=== PATIENT | male | born 1940 | race Caucasian/White ===

== ENCOUNTER 2018-08-25 10:18 | Observation (INO) | payer MEDICARE ==
[2018-08-25 11:06] LABS: Hematocrit 37.5 % (42.0-52.0); Hemoglobin 13.8 gm/dL (13.5-18.0); Mean Corpuscular Hemoglobin 34.6 pg (27-31); Mean Corpuscular Hgb Conc 36.8 g/dl (32-36); Mean Platelet Volume 9.3 fl (8-11.3); Neutrophil # 4.1 K/mm3 (1.3-6.0); Neutrophil % 62.8 % (42-75.0); Platelet Count 173 K/mm3 (150-450); Red Blood Count 3.99 M/mm3 (4.7-6.0); Red Cell Distribution Width 11.9 % (11.5-14.0); White Blood Count 6.5 K/mm3 (4.0-10.5)
[2018-08-25 11:17] LABS: Albumin * 3.5 gm/dl (3.4-5.0); Anion Gap 5.5 mmol/L (6.8-13.8); BUN/Creatinine Ratio 13.6 (9.0-21.6); Bilirubin, Total 1.1 mg/dL (0.0-1.1); Ca. Corrected For Albumin 8.9 mg/dL (8.4-10.2); Calcium * 8.8 mg/dL (7.9-10.9); Carbon Dioxide 30.6 mmol/L (24-32.6); Potassium 4.1 mmol/L (3.4-4.6); Total Protein 7.1 gm/dL (6.2-8.2)
[2018-08-25 11:21] LABS: Urine Bilirubin Negative (NEGATIVE); Urine Blood Negative /ul (NEGATIVE); Urine Ketone Negative (NEGATIVE); Urine Nitrite Negative (NEGATIVE); Urine Protein 100 mg/dL (NEGATIVE); Urine Urobilinogen Normal (NORMAL); Urine pH 6.5 pH (5.0-7.0)
[2018-08-25 11:39] LABS: Urine Appearance Clear (CLEAR); Urine Bacteria TRACE; Urine Color Yellow; Urine RBC None Seen /hpf (0-5); Urine WBC 0-5 /hpf (0-5)
--- NOTE | 2018-08-25 12:28 | ERNOTE ---
Neuro HPI ER Record Date of Service: 08/25/18 Time Seen by Provider: 08/25/18 10:56 Source: patient Exam Limitations: no limitations Immunizations: IMMUNIZATION HX Immunizations Up to Date Yes History of Influenza Vaccine Yes Hx Pneumococcal Vaccination Yes Allergies/Adverse Reactions: Allergies Allergy/AdvReac Type Severity Reaction Status Date / Time No Known Allergies Allergy Verified 08/25/18 10:23 Home Medications: HOME MEDICATIONS Aspirin 325 mg PO DAILY 02/06/13 [Last Taken Unknown] Lisinopril/Hydrochlorothiazide [Lisinopril-Hctz 20-25 mg Tab] 2 tab PO DAILY 03/19/13 [Last Taken Unknown] Metoprolol Succinate [Toprol Xl] 100 mg PO BID 03/19/13 [Last Taken Unknown] - History of Present Illness Narrative: patient c/o weakness and diorientation, recently had uri with sinus congestion, these symptoms have resolved Onset: cannot confirm onset Severity: moderate - Character of Deficits Additional Deficits: Present: weakness, off balance Baseline Cognition: Present: alert, oriented x 4 Baseline Gait: Present: walks w/o assistance Associated Symptoms: Reports: disoriented, trouble concentrating Review of Systems - Review of Systems Constitutional: Present: See HPI, weakness, fatigue, malaise EYE: Present: no symptoms reported ENT: Present: no symptoms reported Respiratory: Present: no symptoms reported Cardiology: Present: no symptoms reported Gastrointestinal/Abdominal: Present: no symptoms reported Genitourinary: Present: no symptoms reported Musculoskeletal: Present: no symptoms reported Skin: Present: no symptoms reported Neurological: Present: dizziness/light-headedness, weakness Endocrine: Present: no symptoms reported Hematologic/Lymphatic: Present: no symptoms reported Psych: Present: no symptoms reported All Other Systems: All systems neg except as marked Medical History (Last Updated 08/25/18 @ 10:25 by Brook Quintanilla RN) Afib HTN (hypertension) Surgical History: Surgical History (Last Updated 08/25/18 @ 10:25 by Brook Quintanilla RN) H/O coronary artery bypass surgery History of appendectomy Family History: Family History (Last Updated 08/25/18 @ 10:25 by Brook Quintanilla RN) Other No pertinent family history Social History: Preferred Language Monegasque Smoking Status Former smoker Abuse History No History of abuse Psych History No pertinent hx Alcohol Use occasionally Drug Use none No Social History Section defined Physical Exam - Physical Exam General Appearance: Present: mild distress, anxious Head Exam: Present: normal inspection, no evidence of injury Eye Exam: Normal inspection: bilateral, PERRL: bilateral, EOMI: bilateral Ears, Nose, Throat: Present: normal ENT inspection, normal pharynx Neck: Present: normal inspection, nontender Respiratory: Present: no respiratory distress, normal breath sounds, no accessory muscle use, chest nontender, lungs clear Cardiovascular/Chest: Present: regular rate, rhythm, no murmur, normal peripheral pulses Gastrointestinal/Abdominal: Present: normal bowel sounds, nontender, nondistended, soft, no organomegaly Back Exam: Present: normal inspection, normal range of motion, no CVA tenderness, no vertebral tenderness Extremity Exam: Present: normal inspection, non-tender, normal range of motion, no edema Neurological Exam: Present: alert, oriented, normal mood/affect, no motor/sensory deficits Skin Exam: Present: normal color, warm/dry Lymphatic Exam: Present: no adenopathy Yen Coma Scale - Assess Eye Opening: To Voice Motor: Obeys Commands Verbal: Oriented - Total Coma Scale Total: 14 Progress - Date and Time Seen: Date and Time: 08/25/18 12:26 patient unchanged, discussed results of tests with patient, case discussed with dr cabrera, to admit to observation - Results and Orders Patient's Lab Results:: I have reviewed the patient's lab results. - Vital Signs Patient's Vital Signs:: I have reviewed the patient's vital signs. Vital Signs: Vital Signs 08/25/18 10:18 08/25/18 11:14 08/25/18 12:09 Temperature 36.3 C Pulse Rate 68 68 56 L Respiratory Rate 16 15 Blood Pressure 153/74 H 154/74 H O2 Sat by Pulse Oximetry 100 100 - EKG EKG: atrial fibrillation - Progress/Reassessment Chief Complaint: Altered Mental Status Progress:: Unchanged - Transfer of Care Expected Disposition: Admit Plan - Plan Plan: to admit to observation Departure Clinical Impression: Hyponatremia - Departure Disposition: Still a patient Condition: Stable Referrals: Navneet Barry DO [Primary Care Provider] -
[2018-08-25] MEDS ORDERED: NORMAL SALINE 1,000 ML IV PRN (12:34)
--- NOTE | 2018-08-25 14:40 | HP ---
Chief Complaint - Chief Complaint Date of Service: 08/25/18 Time of Service: 14:30 Chief Complaint: "didn't feel right" History of Present Illness: Patient with PMHx of HTN, afib, previous coronary bypass, and significant alcohol use presented to the ED after noticing problems with focusing, inability to write, and "not feeling right." The symptoms started today. He didn't feel like he was confused. He has never had this before. He drinks 6 beers daily. Denies cancer history. NO CP, SOB, cough, diarrhea. Does report some possible constipation. Medical History (Last Reviewed 08/25/18 @ 13:45 by Lisa Rosado RN) Afib HTN (hypertension) Surgical History: Surgical History (Last Reviewed 08/25/18 @ 13:45 by Lisa Rosado RN) H/O coronary artery bypass surgery History of appendectomy Family History: Family History (Last Updated 08/25/18 @ 13:46 by Lisa Rosado RN) Mother Diabetes Daughter Brain tumor Social History: Patient Lives/Resources Home Utilized Preferred Language Kinyarw[place] Smoking Status Former smoker Have you smoked in the past 12 No months Abuse History No History of abuse Psych History No pertinent hx Alcohol Use occasionally Drug Use none No Social History Section defined Review Of Systems (GEN) - Review of Systems Generalized/Overall Review: Absent: Fever Respiratory: Absent: Cough, Shortness of Breath Cardiac: Absent: Chest Pain, Edema Abdominal: Present: Constipation. Absent: Abdominal Pain, Diarrhea, Bright blood from rectum Genitourinary: Absent: Dysuria Neurological: Absent: Numbness, Seizure, Tingling Immunizations: IMMUNIZATION HX Immunizations Up to Date Yes History of Influenza Vaccine Yes Hx Pneumococcal Vaccination Yes Allergies/Adverse Reactions: Allergies Allergy/AdvReac Type Severity Reaction Status Date / Time No Known Allergies Allergy Verified 08/25/18 13:45 Home Medications: HOME MEDICATIONS Aspirin 325 mg PO 3XW 02/06/13 [Last Taken Unknown] Lisinopril/Hydrochlorothiazide [Lisinopril-Hctz 20-25 mg Tab] 2 tab PO DAILY 03/19/13 [Last Taken Unknown] Metoprolol Succinate [Toprol Xl] 100 mg PO BID 03/19/13 [Last Taken Unknown] Exam - Exam Vital Signs: Vital Signs - Last Taken Temp 36.4 C 08/25/18 13:38 Pulse 68 08/25/18 13:38 Resp 18 08/25/18 13:38 BP 165/89 H 08/25/18 13:38 Pulse Ox 98 08/25/18 13:38 Constitutional: Present: Alert, Oriented x3, Cooperative, Well developed, No distress ENT Exam: Present: moist mucous membranes Respiratory: Present: lungs clear, normal breath sounds Cardiovascular/Chest: Present: irregularly irregular Abdomen: Present: Normal bowel sounds, soft, nontender Extremity: Absent: lower extremity edema Skin Exam: Present: other - telangiectasia of nose and face Eye contact: Present: cooperative, good eye contact Diagnostic Studies: Abnormal Lab Results 08/25/18 08/25/18 08/25/18 Range/Units 11:03 11:03 11:05 RBC 3.99 L (4.7-6.0) M/mm3 Hct 37.5 L (42.0-52.0) % MCH 34.6 H (27-31) pg MCHC 36.8 H (32-36) g/dl Immature Gran % (Auto) 0.50 H (0.001-0.429) % Lymphocytes % 16.7 L (20-51) % Monocytes % 18.0 H (0.0-9) % Lymphocytes # 1.09 L (1.5-3.5) k/mm3 Monocytes # 1.2 H (0.0-1.0) k/mm3 Sodium 120 L D (132-142) mmol/L Plasma Sodium 121 L (130-142) mmol/L Chloride 88 L (97-106) mmol/L Anion Gap 5.5 L (6.8-13.8) mmol/L Random Glucose 139 H (70-110) mg/dL Urine Protein 100 H (NEGATIVE) mg/dL Prot Sulfosalicylic Acd 2+ H (0) mg/dL Ur Epithelial Cells 5-10 H (0-5) /hpf Laboratory Results WBC 6.5 K/mm3 (4.0-10.5) 08/25/18 11:03 RBC 3.99 M/mm3 (4.7-6.0) L 08/25/18 11:03 Hgb 13.8 gm/dL (13.5-18.0) 08/25/18 11:03 Hct 37.5 % (42.0-52.0) L 08/25/18 11:03 MCV 94.0 fl (78-100) 08/25/18 11:03 MCH 34.6 pg (27-31) H 08/25/18 11:03 MCHC 36.8 g/dl (32-36) H 08/25/18 11:03 RDW 11.9 % (11.5-14.0) 08/25/18 11:03 Plt Count 173 K/mm3 (150-450) 08/25/18 11:03 MPV 9.3 fl (8-11.3) 08/25/18 11:03 Immature Gran % (Auto) 0.50 % (0.001-0.429) H 08/25/18 11:03 Immature Gran # (Auto) 0.03 K/mm3 (0.000-0.0310) 08/25/18 11:03 Neutrophils % 62.8 % (42-75.0) 08/25/18 11:03 Lymphocytes % 16.7 % (20-51) L 08/25/18 11:03 Monocytes % 18.0 % (0.0-9) H 08/25/18 11:03 Eosinophils % 1.2 % (0.0-3.0) 08/25/18 11:03 Basophils % 0.8 % (0.0-1.0) 08/25/18 11:03 Nucleated RBC % 0.0 k/mm3 (0-1) 08/25/18 11:03 Neutrophils # 4.1 K/mm3 (1.3-6.0) 08/25/18 11:03 Lymphocytes # 1.09 k/mm3 (1.5-3.5) L 08/25/18 11:03 Monocytes # 1.2 k/mm3 (0.0-1.0) H 08/25/18 11:03 Eosinophils # 0.1 k/mm3 (0.0-0.7) 08/25/18 11:03 Absolute Basophils 0.1 k/mm3 (0.0-0.1) 08/25/18 11:03 Sodium 120 mmol/L (132-142) L D 08/25/18 11:03 Plasma Sodium 121 mmol/L (130-142) L 08/25/18 11:03 Potassium 4.1 mmol/L (3.4-4.6) 08/25/18 11:03 Chloride 88 mmol/L (97-106) L 08/25/18 11:03 Carbon Dioxide 30.6 mmol/L (24-32.6) 08/25/18 11:03 Anion Gap 5.5 mmol/L (6.8-13.8) L 08/25/18 11:03 BUN 17 mg/dL (6-23) D 08/25/18 11:03 Creatinine 1.25 mg/dL (0.4-1.4) 08/25/18 11:03 Est GFR (Non-Af Amer) 60 mL/min (60-130) D 08/25/18 11:03 BUN/Creatinine Ratio 13.6 (9.0-21.6) 08/25/18 11:03 Random Glucose 139 mg/dL (70-110) H 08/25/18 11:03 Calcium 8.8 mg/dL (7.9-10.9) 08/25/18 11:03 Calcium Adj for Albumin 8.9 mg/dL (8.4-10.2) 08/25/18 11:03 Total Bilirubin 1.1 mg/dL (0.0-1.1) 08/25/18 11:03 AST 47 U/L (0-48) 08/25/18 11:03 ALT 36 U/L (19-67) 08/25/18 11:03 Alkaline Phosphatase 100 U/L (50-170) 08/25/18 11:03 Total Protein 7.1 gm/dL (6.2-8.2) 08/25/18 11:03 Albumin 3.5 gm/dl (3.4-5.0) 08/25/18 11:03 Urine Color Yellow 08/25/18 11:05 Urine Appearance Clear (CLEAR) 08/25/18 11:05 Urine pH 6.5 pH (5.0-7.0) 08/25/18 11:05 Ur Specific [place] 1.020 SP.GR. (1.005-1.030) 08/25/18 11:05 Urine Protein 100 mg/dL (NEGATIVE) H 08/25/18 11:05 Urine Glucose (UA) Negative mg/dL (NEGATIVE) 08/25/18 11:05 Urine Ketones Negative mg/dL (NEGATIVE) 08/25/18 11:05 Urine Blood Negative /ul (NEGATIVE) 08/25/18 11:05 Urine Nitrate Negative (NEGATIVE) 08/25/18 11:05 Urine Bilirubin Negative mg/dl (NEGATIVE) 08/25/18 11:05 Prot Sulfosalicylic Acd 2+ mg/dL (0) H 08/25/18 11:05 Urine Urobilinogen Normal EU/dl (NORMAL) 08/25/18 11:05 Ur Leukocyte Esterase Negative /ul (NEGATIVE) 08/25/18 11:05 Urine RBC None seen /hpf (0-5) 08/25/18 11:05 Urine WBC 0-5 /hpf (0-5) 08/25/18 11:05 Ur Epithelial Cells 5-10 /hpf (0-5) H 08/25/18 11:05 Urine Bacteria Trace (NONE) 08/25/18 11:05 Urine Culture Comments No culture indicated 08/25/18 11:05 Assessment/Plan - Assessment/Plan (1) Hyponatremia Assessment: Sodium level of 120. Previous level of 127 in August of 2017, and was normal at 126 in October 2014. 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 Osmolality pending. Denies recent medication changes. He is receiving NS currently, and will recheck BMP this evening. Problem: Acute
[2018-08-25 19:42] LABS: Anion Gap 8.2 mmol/L (6.8-13.8); BUN/Creatinine Ratio 18.8 (9.0-21.6); Calcium * 8.5 mg/dL (7.9-10.9); Carbon Dioxide 30.2 mmol/L (24-32.6); Estimated Creat Clear 56.1; Potassium 3.4 mmol/L (3.4-4.6)
[2018-08-25] MEDS ORDERED: METOPROLOL SUCCINATE 100 MG TABLET.SA PO SCH ×2 (20:00→21:00)
[2018-08-26] MEDS: LISINOPRIL 40 MG TABLET PO SCH ×2 (00:28→08:32)
[2018-08-26] MEDS ORDERED: BISACODYL 10 MG SUPP.RECT RC ONE (05:10)
--- NOTE | 2018-08-26 05:15 | PN ---
Progess Note - Interim Date: 08/26/18 Time: 05:10 Narrative: 08/26/18 05:10 Patient's sodium improved to 128 last night, this morning's labs pending. His feelings of difficulty with concentrating are no longer present. He does report feeling like he has a bowel blockage because his stools have been flat. His last colonoscopy was 5-6 years ago. PE: Alert, oriented CV: heart irregularly irregular Resp: no increased effort, CTAB Abdomen: Soft, nontender, no palpable masses Ext: No swelling A/P: Hyponatremia: Improved from 120 to 128 with NS yesterday. Recheck pending for this morning. Secondary to chronic daily beer intake and HCTZ. Will switch from 20-25 lisinopril-HCTZ to 40 mg lisinopril. Can discharge later today. Constipation: Abdomen soft, nontender. Will start miralax and dulcolax suppository. 08/26/18 05:24
--- NOTE | 2018-08-26 05:42 | DS ---
(1) Hyponatremia Problem: Acute Description of Stay: Patient with PMHx of afib, HTN, hx of coronary bypass presented to the ED after waking up that day "not feeling right." He admits to drinking about 6 beers a day. He reported he couldn't write, and had difficulty focusing. Sodium was 120 on admission, and he was admitted for treatment of hyponatremia. No other significant lab abnormalities. After administering normal saline, his sodium improved to 128. Chart review shows a previous level of 127 in August of 2017, and this was felt to be close to his baseline. His sodium was likely low due to beer potomania, and secondary to 20-25 mg lisinopril-HCTZ. On discharge, this medication was changed to 40 mg lisinopril daily. He also reported feeling like he has a bowel blockage because his stools have been flat. Denies blood in his stools. Most recent colonoscopy 5-6 years ago. Abdominal exam was soft and nontender, with no palpable mass. Procedures Performed: none Results and Findings: Lab Pending Results 08/25/18 11:03: WBC 6.5, RBC 3.99 L, Hgb 13.8, Hct 37.5 L, MCV 94.0, MCH 34.6 H, MCHC 36.8 H, RDW 11.9, Plt Count 173, MPV 9.3, Immature Gran % (Auto) 0.50 H, Immature Gran # (Auto) 0.03, Neutrophils % 62.8, Lymphocytes % 16.7 L, Monocytes % 18.0 H, Eosinophils % 1.2, Basophils % 0.8, Nucleated RBC % 0.0, Neutrophils # 4.1, Lymphocytes # 1.09 L, Monocytes # 1.2 H, Eosinophils # 0.1, Absolute Basophils 0.1 08/25/18 11:03: Sodium 120 L D, Plasma Sodium 121 L, Potassium 4.1, Chloride 88 L, Carbon Dioxide 30.6, Anion Gap 5.5 L, BUN 17 D, Creatinine 1.25, Est GFR (Non-Af Amer) 60 D, BUN/Creatinine Ratio 13.6, Random Glucose 139 H, Calcium 8.8, Calcium Adj for Albumin 8.9, Total Bilirubin 1.1, AST 47, ALT 36, Alkaline Phosphatase 100, Total Protein 7.1, Albumin 3.5 08/25/18 11:05: Urine Color Yellow, Urine Appearance Clear, Urine pH 6.5, Ur Specific [place] 1.020, Urine Protein 100 H, Urine Glucose (UA) Negative, Urine Ketones Negative, Urine Blood Negative, Urine Nitrate Negative, Urine Bilirubin Negative, Prot Sulfosalicylic Acd 2+ H, Urine Urobilinogen Normal, Ur Leukocyte Esterase Negative, Urine RBC None seen, Urine WBC 0-5, Ur Epithelial Cells 5-10 H, Urine Bacteria Trace, Urine Culture Comments No culture indicated 08/25/18 19:33: Sodium 128 L, Plasma Sodium 128 L, Potassium 3.4, Chloride 93 L, Carbon Dioxide 30.2, Anion Gap 8.2, BUN 21, Creatinine 1.12, Est GFR (Non-Af Amer) 68, BUN/Creatinine Ratio 18.8, Random Glucose 121 H, Calcium 8.5 Discharge Location: Home Disposition: Home self-care Condition: Good Discharge Activity: Activity as tolerated Discharge Diet: General/regular food - Decrease alcohol intake Referrals: Navneet Barry DO [Primary Care Provider] - Prescriptions (Any new or edited meds): Lisinopril [Zestril] 40 mg PO DAILY #30 tablet Polyethylene Glycol 3350 [Miralax] 17 gm PO DAILY #1 btl Complete Home Medications List: Complete Home Medication List: Aspirin 325 mg PO 3XW 02/06/13 Metoprolol Succinate [Toprol Xl] 100 mg PO BID 03/19/13 Lisinopril [Zestril] 40 mg PO DAILY #30 tablet 08/26/18 Polyethylene Glycol 3350 [Miralax] 17 gm PO DAILY #1 btl 08/26/18
[2018-08-26 05:50] LABS: Anion Gap 9.8 mmol/L (6.8-13.8); Calcium * 8.3 mg/dL (7.9-10.9); Carbon Dioxide 28.4 mmol/L (24-32.6); Estimated Creat Clear 66.9; Potassium 3.2 mmol/L (3.4-4.6)
[2018-08-26 08:22] VITALS: BP 159/74
[2018-08-26] MEDS ORDERED: POLYETHYLENE GLYCOL 3350 119 GM BTL PO SCH (09:00)
== END 2018-08-26 08:57 | disposition home or self-care (01) ==
LOC: ER 10:18 → MS 10:18
PROVIDERS: ADMIT Family Medicine; ATTEND Family Medicine
DX: R09.81 Nasal congestion
CPT/HCPCS: 36415; 71020; 71046; 80048; 80053; 81001; 83930; 85025; 93005; 96365; 96366; 99285; G0378